=== PATIENT | male | born 1960 | race Caucasian/White ===

== ENCOUNTER → 2021-05-24 | Outpatient (CLI) | payer OTHER ==
[~2021-05-24] MED LIST: ALLERCLEAR10 MG PO; ASPIRIN EC81 M1 PO; DILTIAZEM ER120 M1 PO; NAPROSYN500 MG PO; OMEPRAZOLE 20 M20 M1 PO; ONE DAILY HEAL1 EACH; SYNTHROID75 MCG PO
[2021-05-24 11:02] LABS: CREATININE 1.6 mg/dL (0.6-1.3)
== END ==
LOC: M.LAB 10:30 → M.MRI 11:30
PROVIDERS: ATTEND Internal Medicine
DX: Z01.812 Encounter for preprocedural laboratory examination (principal); M51.16 Intervertebral disc disorders with radiculopathy, lumbar region; M47.26 Other spondylosis with radiculopathy, lumbar region